=== PATIENT | female | born 1985 | race Caucasian/White ===

== ENCOUNTER 2016-09-05 09:19 | Emergency (ER) | payer MEDICAID, OTHER ==
[2016-09-05 09:28] VITALS: BP 124/77
--- NOTE | 2016-09-05 09:39 | UC ---
Complaint Female HPI - HPI Summary HPI Summary: 30 y/o female presents to urgent care c/o burning, frequency and pain on urination since 09/02/2016. Pt reports she has been taking Azo, and cramberry pills to alleviate symptoms, but it is not helping. Her pain is 8/10 today on urination, with hesitancy and frequency. Denies fever, flank pain, SOB, abdominal pain, chest pain, N/V/D , vaginal discharge or Hx of STD. LMP 2009, she has IUD since then and she doesn't have her period since then. Last PAP 6 months and it was negative. - History Of Current Complaint Chief Complaint: UCGU Stated Complaint: UTI TYPE SYMPTOMS Time Seen by Provider: 09/05/16 09:36 Hx Obtained From: Patient Hx Last Menstrual Period: iud ?: No Onset/Duration: Gradual Onset, Lasting Days, Still Present Timing: Constant, Lasting Days Severity Initially: Mild Severity Currently: Moderate Pain Intensity: 8 Pain Scale Used: 0-10 Numeric Character: Burning Aggravating Factor(s): Urination Alleviating Factor(s): Nothing Associated Signs And Symptoms: Positive: Genital Swelling. Negative: Fever, Back Pain, Vaginal Bleeding/Discharge, Vaginal Discharge, Nausea, Vomiting(# Of Episodes =), Genital Blisters - Risk Factors Ectopic Risk Factor: Negative Ovarian Torsion Risk Factor: Negative - Allergies/Home Medications Allergies/Adverse Reactions: Allergies Allergy/AdvReac Type Severity Reaction Status Date / Time Cefaclor [From Ceclor] Allergy unk Verified 09/05/16 09:24 Doxycycline Allergy migraines Verified 09/05/16 09:24 cillins Allergy throat Uncoded 09/05/16 09:23 closes PMH/Surg Hx/FS Hx/Imm Hx Previously Healthy: Yes - Surgical History Surgical History: Yes Surgery Procedure, Year, and Place: tonsils - Family History Known Family History: Positive: Hypertension - Social History Occupation: Employed Full-time Lives: With Family Alcohol Use: Occasionally Substance Use Type: None Smoking Status (MU): Heavy Every Day Tobacco Smoker Review of Systems Constitutional: Negative Skin: Negative Eyes: Negative ENT: Negative Respiratory: Negative Cardiovascular: Negative Gastrointestinal: Negative Genitourinary: Dysuria, Frequency Motor: Negative Neurovascular: Negative Musculoskeletal: Negative Neurological: Negative Psychological: Negative All Other Systems Reviewed And Are Negative: Yes Physical Exam Triage Information Reviewed: Yes Appearance: Well-Appearing, No Pain Distress, Well-Nourished Vital Signs: Initial Vital Signs Temp 99.4 F 09/05/16 09:25 Pulse 92 09/05/16 09:25 Resp 17 09/05/16 09:25 BP 124/77 09/05/16 09:25 Pulse Ox 99 09/05/16 09:25 Vital Signs Reviewed: Yes Eye Exam: Normal Eyes: Positive: Conjunctiva Clear - PERRLA, EOMI, fundi grossly normal ENT Exam: Normal ENT: Positive: Normal ENT inspection, Hearing grossly normal, Pharynx normal, TMs normal Dental Exam: Normal Neck exam: Normal Neck: Positive: Supple, Nontender, No Lymphadenopathy Respiratory Exam: Normal Respiratory: Positive: Chest non-tender, Lungs clear, Normal breath sounds Cardiovascular Exam: Normal Cardiovascular: Positive: RRR, No Murmur, Pulses Normal, Brisk Capillary Refill Abdominal Exam: Normal Abdomen Description: Positive: Nontender, No Organomegaly, Soft. Negative: CVA Tenderness (R), CVA Tenderness (L) Bowel Sounds: Positive: Present Musculoskeletal Exam: Normal Musculoskeletal: Positive: Strength Intact, ROM Intact, No Edema Neurological Exam: Normal Psychological Exam: Normal Skin Exam: Normal Complaint Female Dx - Course Course Of Treatment: 30 y/o female presents to he urgent care c/o burning, frequency and pain on urination since 09/02/2016.Hx obtained. PE WNL,. Pt already taking Azo and other OTC medications to alleviate Dysuria. Pt states pain and irritation on urination. Pt given tylenol PO to alleviate symptoms. Urine sent for culture since Pt already on Azo. Pt Rs Macrobid 100mg PO BID x 7 days. Advised to increse fluid intake and rest. If symptoms do not improve or worsen or develops fever or flank pain to goimmediately to the ER, otherwise f/u with PCP or return to the urgent care. Pt understood and agreed, and left the clinic ambulating. - Differential Dx/Diagnosis Differential Diagnosis/HQI/PQRI: Cervicitis, Ovarian Cyst, Renal Colic, Sexually Transmitted Disease, Urinary Tract Infection Provider Diagnoses: 1- Urinary tract infection Discharge - Discharge Plan Condition: Stable Disposition: HOME Prescriptions: Acetaminophen TAB* [Tylenol TAB*] 650 mg PO Q4H PRN #30 tab PRN Reason: Pain Nitrofurantoin Macrocrystals* [Macrodantin*] 100 mg PO BID #14 cap Patient Education Materials: Urinary Tract Infection in Women (ED) Referrals: [facility]IAN REFERRAL [Outside] - 2 Days No Primary Care Phys,NOPCP [Primary Care Provider] - Additional Instructions: 1- Please take full course of antibiotic to avoid resistance and increase fluid intake. 2-Take Tylenol as indicated to alleviate pain. 3- If symptoms do not improve to return to the urgent care or f/u with a PCP from the [facility] referral center for further evaluation and treatment.
[2016-09-05] MEDS ORDERED: Ibuprofen TAB* 400 MG PO ONE (09:49)
[2016-09-05] MEDS ORDERED: Acetaminophen TAB* 325 MG PO ONE (09:57)
== END 2016-09-05 10:15 | disposition home or self-care (01) ==
LOC: UCEAST 09:19
DX: N39.0 Urinary tract infection, site not specified (principal); Z88.1 Allergy status to other antibiotic agents; Z88.0 Allergy status to penicillin; F17.210 Nicotine dependence, cigarettes, uncomplicated
CPT/HCPCS: 87077; 87086; 87186; 99212; A9270-GY; G0463